=== PATIENT | male | born 1980 | race Caucasian/White ===

== ENCOUNTER 2022-03-10 09:07 | Outpatient (CLI) | payer MEDICARE | END 2022-03-10 09:08 | disposition home or self-care (01) | LOC: NS 09:07 | PROVIDERS: ATTEND Nurse Practitioner | DX: Z71.3 Dietary counseling and surveillance (principal); E66.01 Morbid (severe) obesity due to excess calories; Z71.89 Other specified counseling; Z68.42 Body mass index [BMI] 45.0-49.9, adult | CPT/HCPCS: 97802 ==

== ENCOUNTER 2022-08-24 07:33 | Outpatient (CLI) | payer MEDICARE ==
[2022-08-24 11:33] LABS: BASOPHILS % (AUTO) 0.3 %; EOSINOPHILS # (AUTO) 0.2 10^3/uL (0.0-0.7); HCT - HEMATOCRIT 47.4 % (42.0-52.0); HGB - HEMOGLOBIN 15.1 g/dL (14.0-18.0); LYMPHOCYTES # (AUTO) 3.1 10^3/uL (1.5-3.5); LYMPHOCYTES % (AUTO) 33.4 %; MEAN CORPUSCULAR HEMOGLOBIN 28.8 pg (27.0-31.0); MEAN CORPUSCULAR HGB CONC 31.9 g/dL (32.0-36.0); MEAN CORPUSCULAR VOLUME 90.3 fL (80.0-94.0); MONOCYTES # (AUTO) 0.8 10^3/uL (0.0-1.0); MONOCYTES % (AUTO) 8.4 %; NEUTROPHILS # (AUTO) 5.1 10^3/uL (1.5-6.6); PLT - PLATELET COUNT 273 10^3/uL (130-450); RED BLOOD COUNT 5.25 10^6/uL (4.70-6.10); RED CELL DISTRIBUTION WIDTH 13.2 % (12.0-15.0); WHITE BLOOD COUNT 9.2 x10^3/uL (4.8-10.8)
[2022-08-24 11:40] LABS: BILIRUBIN,URINE NEGATIVE (NEGATIVE); GLUCOSE, URINE (UA) NEGATIVE (NEGATIVE); KETONES,URINE (UA) NEGATIVE (NEGATIVE); LEUKOCYTE ESTERASE, URINE NEGATIVE (NEGATIVE); NITRITE,URINE NEGATIVE (NEGATIVE); OCCULT BLOOD,URINE NEGATIVE (NEGATIVE); PROTEIN,URINE NEGATIVE (NEGATIVE); UROBILINOGEN,URINE 0.2 (NORMAL) E.U./dL (NORMAL)
[2022-08-24 11:46] LABS: BACTERIA,URINE None Seen /HPF (None Seen); CLARITY,URINE CLEAR (CLEAR); RBC,URINE None Seen /HPF (0-5); SQUAMOUS EPITHELIAL CELL,UR NONE SEEN (<= Few); WBC,URINE 0-3 /HPF (0-3)
[2022-08-24 12:14] LABS: ESTIMATED AVERAGE GLUCOSE 111 mg/dL (70-100); HEMOGLOBIN A1c% 5.5 % (4.27-6.07)
[2022-08-24 12:23] LABS: ALBUMIN 3.8 g/dL (3.2-5.5); ALKALINE PHOSPHATASE 74 IU/L (42-121); ALT ALANINE AMINOTRANSFERASE 23 IU/L (10-60); AST ASPARTATE AMINOTRANSFERASE 19 IU/L (10-42); BILIRUBIN,TOTAL 0.4 mg/dL (0.2-1.0); BUN - BLOOD UREA NITROGEN 15 mg/dL (6-20); CALCIUM 8.9 mg/dL (8.5-10.3); CARBON DIOXIDE - CO2 27 mmol/L (21-32); CHLORIDE 108 mmol/L (101-111); CHOL/HDL RATIO 4.1 (<5.0); CHOLESTEROL 199 mg/dL; CREATININE 0.8 mg/dL (0.6-1.2); GFR - MDRD 106 (>89); GLUCOSE 103 mg/dL (70-100); HDL CHOLESTEROL 48 mg/dL; LDL CHOLESTEROL,CALCULATED 127 mg/dL; LDL/HDL RATIO 2.6 (<3.6); POTASSIUM 4.5 mmol/L (3.5-5.0); SODIUM 139 mmol/L (135-145); TOTAL PROTEIN 7.5 g/dL (6.7-8.2); TRIGLYCERIDES 119 mg/dL; VLDL CHOLESTEROL 24 mg/dL
[2022-08-24 12:25] LABS: THYROID STIMULATING HORMONE 2.66 uIU/mL (0.34-5.60)
[2022-08-25 19:07] LABS: T-TRANSGLUTAMINASE (TTG) IGA <2 U/mL (0-3); T-TRANSGLUTAMINASE (TTG) IGG 6 U/mL (0-5)
== END 2022-08-24 07:34 | disposition home or self-care (01) ==
LOC: LAB.N 07:33
PROVIDERS: ATTEND Nurse Practitioner
DX: R53.83 Other fatigue (principal); R03.0 Elevated blood-pressure reading, without diagnosis of hypertension; Z13.220 Encounter for screening for lipoid disorders; E66.01 Morbid (severe) obesity due to excess calories; G62.9 Polyneuropathy, unspecified; Z87.19 Personal history of other diseases of the digestive system
CPT/HCPCS: 36415; 80053; 80061; 81001; 82607; 83036; 83516; 83721; 84443; 85025; 86364; 87086

== ENCOUNTER 2023-08-31 14:34 | Emergency (ER) | payer MEDICARE ==
--- NOTE | 2023-08-31 15:27 | ED Physician Documentation ---
History of Present Illness - Stated complaint Stated Complaint: R FT PX - Chief complaint Chief Complaint: General - History obtained from History obtained from: Patient - History of Present Illness Timing: How many weeks ago (1) Pain level max: 0 Pain level now: 0 - Additonal information Additional information: 43 year old male with a history of neuropathy and charcot foot presents with a blister to the R foot x1 week. States went to the walk in clinic and sent here for further evaluation. Has had several similar foot wounds and usually sees wound care. No fevers. No chills. Nothing makes it better or worse. Patient is not diabetic. Has mild redness to the area around the wound. Review of Systems Constitutional: denies: Fever, Chills, Myalgias Respiratory: denies: Cough GI: denies: Abdominal Pain, Nausea, Vomiting : denies: Dysuria Musculoskeletal: denies: Neck pain, Back pain Neurologic: denies: Headache PD PAST MEDICAL HISTORY - Past Medical History Past Medical History: Yes Psych: Anxiety Other Past Medical History: charcot foot, neuropathy - Past Surgical History Past Surgical History: No - Present Medications Home Medications: Ambulatory Orders Medication Instructions Recorded Confirmed Alprazolam [Xanax] 1 tab PO PRN PRN 08/31/23 08/31/23 Lisinopril [Zestril] 1 tab PO DAILY 08/31/23 08/31/23 Propranolol [Inderal] 1 tab PO DAILY 08/31/23 08/31/23 Sulfamethox/Trimeth 800/160 1 each PO BID #20 tablet 08/31/23 [Bactrim Ds 800/160] cephALEXin [Keflex] 500 mg PO Q6H #40 cap 08/31/23 cloNIDine [Catapres] 1 tab PO DAILY 08/31/23 08/31/23 - Allergies Allergies/Adverse Reactions: Allergies Allergy/AdvReac Type Severity Reaction Status Date / Time No Known Drug Allergies Allergy Verified 08/31/23 14:37 - Living Situation Living Situation: reports: With family Living Arrangement: reports: At home - Social History Does the pt smoke?: No Smoking Status: Never smoker Does the pt drink ETOH?: No Does the pt have substance abuse?: Yes Substance Use and Type: Marijuana - Immunizations Immunizations are current?: Yes PD ED PE NORMAL - Vitals Vital signs reviewed: Yes - General General: Alert and oriented X 3, No acute distress - HEENT HEENT: Moist mucous membranes - Neck Neck: Supple, no meningeal sign - Cardiac Cardiac: RRR, Strong equal pulses - Respiratory Respiratory: No respiratory distress, Clear bilaterally - Derm Derm: Warm and dry - Extremities Extremities: Other (quarter sized ulceration to the R lateral foot at the 5th MTP joint. no drainage. mild surrounding erythema. Patient has no sensation over the foot. normal pulses and cap refill.) - Neuro Neuro: Alert and oriented X 3 - Psych Psych: Normal mood, Normal affect Results - Vitals Vitals: Vital Signs - 24 hr 08/31/23 08/31/23 14:39 15:39 Temperature 36.7 C Heart Rate 77 78 Respiratory 18 16 Rate Blood Pressure 155/90 H 138/84 H O2 Saturation 98 100 Oxygen O2 Source Room air Procedures - General procedure General procedure: Verbal consent obtained for debridement of the right foot. Necrotic tissue was removed with an 11 blade scalpel. Down to vitalized, bleeding tissue. Mepitel was placed over the wound. A dressing was then placed over the wound. No complications. Patient tolerated well. PD Medical Decision Making - ED course Complexity details: considered differential, d/w patient ED course: 43 year old male with superficial ulcer of the right foot with mild cellulitis. The ulcer was debrided with a #11 scalpel and the devitalized tissue was removed down to bleeding tissues. No complications. Patient has neuropathy, but no diabetes. No signs of systemic infection. No fevers. No chills. No myalgias. The infection appears superficial. We will place him on antibiotics. There is no purulent drainage to obtain a culture. Recommend close follow-up with his PCP and close follow-up with wound care. Patient has a history of poor wound healing in the past. No indication for laboratory testing or imaging at this point. Patient counseled regarding signs and symptoms for which I believe and urgent re-evaluation would be necessary. Patient with good understanding of and agreement to plan and is comfortable going home at this time This document was made in part using voice recognition software. While efforts are made to proofread this document, sound alike and grammatical errors may occur. Departure - Departure Disposition: 01 Home, Self Care Clinical Impression: Callus of foot Foot ulcer Qualifiers: Laterality: right Non-pressure ulcer stage: limited to breakdown of skin Qualified Code(s): L97.511 - Non-pressure chronic ulcer of other part of right foot limited to breakdown of skin Charcot's joint of foot Qualifiers: Laterality: right Qualified Code(s): M14.671 - Charcot's joint, right ankle and foot Peripheral neuropathy Qualifiers: Peripheral neuropathy type: polyneuropathy, unspecified Qualified Code(s): G62.9 - Polyneuropathy, unspecified Condition: Good Instructions: Pressure Ulcer Foot Follow-Up: Rossi Griffiths ARNP [Primary Care Provider] - Within 3 Days Prescriptions: Sulfamethox/Trimeth 800/160 [Bactrim Ds 800/160] 1 each PO BID #20 tablet cephALEXin [Keflex] 500 mg PO Q6H #40 cap Comments: The wound on your foot was debrided today. You will need a referral to wound care from your doctor. Please see them next week for this. Take all antibiotics until gone. Return for increasing redness, swelling, fevers, or other new or worrisome symptoms. Your prescription was sent to [facility]. Forms: PCP List Discharge Date/Time: 08/31/23 15:39
[2023-08-31 15:45] VITALS: BP 138/84; O2SAT 100
== END 2023-08-31 15:39 | disposition home or self-care (01) ==
LOC: ED 14:34
DX: L97.511 Non-pressure chronic ulcer of other part of right foot limited to breakdown of skin (principal); G62.9 Polyneuropathy, unspecified; L84 Corns and callosities; M14.671 Charcot's joint, right ankle and foot; Z79.899 Other long term (current) drug therapy
CPT/HCPCS: 14040; 99284

== ENCOUNTER 2023-09-23 11:29 | Inpatient (IN) | payer MEDICARE ==
--- NOTE | 2023-09-23 12:38 | ED Physician Documentation ---
PD HPI WOUND RECHECK - Stated complaint Stated Complaint: RT FOOT SORE - Chief complaint Chief Complaint: Wound - Histroy obtained from History obtained from: Patient - Additional information Additional information: He has a history of idiopathic neuropathy and Charcot joints of his feet. He has had wound infections before. He developed the current wound which is on the lateral right foot about a month ago. He slept in his boots and the next morning had a angry looking blood blister here. He was seen here and it was debrided and he was put on Keflex and Bactrim. Over the last 4 days or so it has become much worse, larger, and he is developed fevers and shaking chills with a sense of generalized illness. PD PAST MEDICAL HISTORY - Past Medical History Past Medical History: Yes Cardiovascular: Hypertension Respiratory: None Neuro: Peripheral neuropathy Endocrine/Autoimmune: None GI: None : None HEENT: None Psych: Anxiety Musculoskeletal: Other Derm: Other - Past Surgical History Past Surgical History: Yes Ortho: Other - Present Medications Home Medications: Ambulatory Orders Medication Instructions Recorded Confirmed Lisinopril [Zestril] 1 tab PO DAILY 08/31/23 09/23/23 Propranolol [Inderal] 1 tab PO DAILY 08/31/23 09/23/23 cloNIDine [Catapres] 1 tab PO DAILY 08/31/23 09/23/23 - Allergies Allergies/Adverse Reactions: Allergies Allergy/AdvReac Type Severity Reaction Status Date / Time No Known Drug Allergies Allergy Verified 09/23/23 11:57 - Social History Does the pt smoke?: No Smoking Status: Former smoker Does the pt drink ETOH?: No Does the pt have substance abuse?: Yes Substance Use and Type: Marijuana - Immunizations Immunizations are current?: Yes PD ED PE NORMAL - Vitals Vital signs reviewed: Yes - General General: Alert and oriented X 3, No acute distress - Cardiac Cardiac: RRR, No murmur - Respiratory Respiratory: No respiratory distress, Clear bilaterally - Abdomen Abdomen: Non tender - Back Back: No CVA TTP, No spinal TTP - Derm Derm: Normal color, Warm and dry - Extremities Extremities: Other (There is a large necrotic ulcer on the lateral part of the right foot proximal to the fifth metatarsal head. Wound culture was taken during initial evaluation and the swab was able to be inserted about 10 cm posteriorly without significant resistance. It is foul-smelling and there is cellulitis in) - Neuro Neuro: Alert and oriented X 3, Normal speech Results - Vitals Vitals: Vital Signs - 24 hr 09/23/23 09/23/23 11:57 14:03 Temperature 36.9 C Heart Rate 81 77 Respiratory 18 20 Rate Blood Pressure 120/65 107/49 L O2 Saturation 98 99 Oxygen O2 Source Room air - Labs Labs: Microbiology 09/23/23 12:30 Wound Culture - Preliminary Foot - Right Laboratory Tests 09/23/23 09/23/23 09/23/23 12:50 12:50 12:50 WBC 14.1 H RBC 4.62 L Hgb 13.1 L Hct 41.4 L MCV 89.6 MCH 28.4 MCHC 31.6 L RDW 12.6 Plt Count 360 MPV 10.6 Neut # (Auto) 9.8 H Lymph # (Auto) 2.7 [place] # (Auto) 1.3 H Eos # (Auto) 0.3 Baso # (Auto) 0.0 Absolute Nucleated RBC 0.00 Nucleated RBC % 0.0 ESR Sodium 136 Potassium 4.0 Chloride 103 Carbon Dioxide 26 Anion Gap 7.0 BUN 10 Creatinine 0.8 Estimated GFR (MDRD) 106 Glucose 102 Lactic Acid 1.1 Calcium 9.5 Total Bilirubin 0.4 AST 13 ALT 25 Alkaline Phosphatase 87 C-Reactive Protein 14.8 H Total Protein 7.0 Albumin 3.6 Globulin 3.4 Albumin/Globulin Ratio 1.1 Procalcitonin Immunoas 09/23/23 09/23/23 12:50 12:50 WBC RBC Hgb Hct MCV MCH MCHC RDW Plt Count MPV Neut # (Auto) Lymph # (Auto) [place] # (Auto) Eos # (Auto) Baso # (Auto) Absolute Nucleated RBC Nucleated RBC % ESR 57 H Sodium Potassium Chloride Carbon Dioxide Anion Gap BUN Creatinine Estimated GFR (MDRD) Glucose Lactic Acid Calcium Total Bilirubin AST ALT Alkaline Phosphatase C-Reactive Protein Total Protein Albumin Globulin Albumin/Globulin Ratio Procalcitonin Immunoas 0.06 - Rads (name of study) R foot XR Relevant Findings:: Final report received, EMP independent interpretation of test PD Medical Decision Making - ED course ED course: 43-year-old gentleman with history of idiopathic neuropathy that has stymied the best efforts of several neurologists and at a minimum he is neither an alcoholic nor diabetic. Because of this he has Charcot feet and now has a foot infection that has failed antibiotics with systemic symptoms of tactile fevers and shaking chills. He has a deep ulcer on the lateral side of the right foot that tracks very deep when I took a culture (approximately 8 to 10 cm deep) with cellulitis and evidence of osteomyelitis of the fifth ray. We do not have orthopedics on-call today but I did texted Dr Helm who is gracious enough to offer guidance and either he or Dr. Hernandez will consult tomorrow for evaluation for potential ray amputation. He was placed on Zosyn and vancomycin and spoke with Dr. Marks for admission at 1:25 PM. - Sepsis Event Sepsis Onset Date: 09/23/23 Sepsis Onset Time: 16:00 Current Stage of Sepsis: Sepsis (He is technically mildly septic with a white count and tachypnea up to 22. He met sepsis criteria at 4 PM with acute tachypnea.) Initial Hypotension: Not hypotensive Possible source of Sepsis: Bone/Joint Mental/Cognitive Status: Alert/Oriented X3, Normal for patient Reason for not giving 30ml/kg crystalloid fluids: Not in septic shock Capillary refill: Less than 2 seconds Peripheral Pulse Strength: 3+ Normal Peripheral Pulse Location: Radial Departure - Departure Disposition: [facility] DC/Xfer Clinical Impression: Peripheral neuropathy Qualifiers: Peripheral neuropathy type: polyneuropathy, unspecified Qualified Code(s): G62.9 - Polyneuropathy, unspecified Osteomyelitis Qualifiers: Osteomyelitis type: other acute Osteomyelitis location: foot Laterality: right Qualified Code(s): M86.171 - Other acute osteomyelitis, right ankle and foot Cellulitis Qualifiers: Site of cellulitis: extremity Site of cellulitis of extremity: lower extremity Laterality: right Qualified Code(s): L03.115 - Cellulitis of right lower limb Foot ulcer Qualifiers: Laterality: right Non-pressure ulcer stage: with necrosis of bone Qualified Code(s): L97.514 - Non-pressure chronic ulcer of other part of right foot with necrosis of bone Condition: Stable
[2023-09-23 12:56] LABS: BASOPHILS % (AUTO) 0.3 %; EOSINOPHILS # (AUTO) 0.3 10^3/uL (0.0-0.7); EOSINOPHILS % (AUTO) 1.8 %; HCT - HEMATOCRIT 41.4 % (42.0-52.0); HGB - HEMOGLOBIN 13.1 g/dL (14.0-18.0); LYMPHOCYTES # (AUTO) 2.7 10^3/uL (1.5-3.5); LYMPHOCYTES % (AUTO) 19.2 %; MEAN CORPUSCULAR HEMOGLOBIN 28.4 pg (27.0-31.0); MEAN CORPUSCULAR HGB CONC 31.6 g/dL (32.0-36.0); MEAN CORPUSCULAR VOLUME 89.6 fL (80.0-94.0); MEAN PLATELET VOLUME 10.6 fL (7.4-11.4); MONOCYTES # (AUTO) 1.3 10^3/uL (0.0-1.0); MONOCYTES % (AUTO) 9.1 %; NEUTROPHILS # (AUTO) 9.8 10^3/uL (1.5-6.6); PLT - PLATELET COUNT 360 10^3/uL (130-450); RED BLOOD COUNT 4.62 10^6/uL (4.70-6.10); RED CELL DISTRIBUTION WIDTH 12.6 % (12.0-15.0); WHITE BLOOD COUNT 14.1 x10^3/uL (4.8-10.8)
--- NOTE | 2023-09-23 13:04 | XRAY Report ---
PROCEDURE: Foot 3+V RT INDICATIONS: Right foot infection TECHNIQUE: 3 views of the foot were acquired. COMPARISON: None. FINDINGS: Bones: Bony lysis can be seen involving the fifth metatarsal joint. No melo fractures are seen. Charcot arthropathy can be seen, with generalized joint space narrowing with disorganization involving the midfoot. There is a moderate plantar calcaneal spur. Soft tissues: There is a soft tissue wound is seen involving the area overlying the fifth metatarsal phalangeal joint. Soft tissue gas is seen. Joint soft tissue swelling can be seen. Postoperative clips can be seen involving the soft tissues of the hindfoot laterally. IMPRESSION: Soft tissue wound with strong suspicion underlying osteomyelitis involving the fifth metatarsophalang eal joint. If there is strong clinical concern for developing osteomyelitis in this patient with this given hist ory, then please consider a dedicated MRI (without and with contrast) for further evaluation (assumin g that there is no contraindication). Generalized soft tissue swelling is seen. Charcot arthropathy. Prior soft tissue postoperative change seen involving the hindfoot laterally. Reviewed by: Jah Abreu MD on 09/23/2023 12:03 PM MELISA Approved by: Jah Abreu MD on 09/23/2023 12:03 PM MELISA Station ID: [id number]
[2023-09-23 13:11] LABS: ALBUMIN 3.6 g/dL (3.2-5.5); ALBUMIN/GLOBULIN RATIO 1.1 (1.0-2.2); BILIRUBIN,TOTAL 0.4 mg/dL (0.2-1.0); CALCIUM 9.5 mg/dL (8.5-10.3); CREATININE 0.8 mg/dL (0.6-1.3); CRP - C-REACTIVE PROTEIN 14.8 mg/dL (<0.5)
[2023-09-23] MEDS: PIPERACILLIN/TAZOBACTAM 3.375 GM in SODIUM CHLORIDE 0.9% MINIBAG 100 ML IV STA (13:31)
[2023-09-23] MEDS: VANCOMYCIN INJ 2 GM, VANCOMYCIN INJ 500 MG in SODIUM CHLORIDE 0.9% 500 ML IV ONE (13:48)
[2023-09-23] MEDS ORDERED: SODIUM CHLORIDE FLUSH 0.9% 10 ML SYRINGE IVP PRN (14:31)
--- NOTE | 2023-09-23 15:04 | HISTORY & PHYSICAL EXAMINATION ---
Chief Complaint - Chief Complaint Chief Complaint: Foot Pain History of Present Illness - Admitted From Admitted From:: Emergency Room - History Obtained From Records Reviewed: Yes History obtained from: Patient and Emergency Room Physician, Dr. Brain Quinonez - History of Present Illness HPI Comment/Other: Tien Osborne is a 43-year-old man with a past medical history significant for idiopathic neuropathy and Charcot joints of the feet. He reports approximately 6 weeks ago he slept in his boots and this is resulted in a right foot ulcer. He was evaluated at the [facility] emergency room and was being followed in the emergency room for the wound. The wound continue to become progressively worse and he was placed on Keflex and Bactrim. Over the last 4 to 5 days he is complaining of shaking chills and fever. He has no other complaints at this time.In the emergency room, patient received Zosyn and vancomycin. History - Past Medical History Cardiovascular: reports: Hypertension Respiratory: reports: None Neuro: reports: Peripheral neuropathy Endocrine/Autoimmune: reports: None GI: reports: None : reports: None HEENT: reports: None Psych: reports: Anxiety Musculoskeletal: reports: Other Derm: reports: Other MRSA Hx?: No - Past Surgical History Ortho: reports: Other - Family & Social History Living Situation: With family Meds/Allgy - Home Medications Home Medications: Ambulatory Orders Medication Instructions Recorded Confirmed Lisinopril [Zestril] 1 tab PO DAILY 08/31/23 09/23/23 Propranolol [Inderal] 1 tab PO DAILY 08/31/23 09/23/23 cloNIDine [Catapres] 1 tab PO DAILY 08/31/23 09/23/23 - Allergies Allergies/Adverse Reactions: Allergies Allergy/AdvReac Type Severity Reaction Status Date / Time No Known Drug Allergies Allergy Verified 09/23/23 11:57 Review of Systems - Constitutional Constitutional: reports: Fever, Chills, Weakness Exam - Vital Signs Reviewed Vital Signs: Yes Vital Signs: Vital Signs x48h Temp Pulse Resp BP Pulse Ox 09/23/23 14:03 77 20 107/49 L 99 09/23/23 11:57 36.9 C 81 18 120/65 98 - Physical Exam General Appearance: positive: No acute distress, Alert Eyes Bilateral: positive: Conjunctivae nml Neck: positive: No JVD, Trachea midline Respiratory: positive: Other (Good air exchange in all lung corley no wheezing no crackles.) Cardiovascular: positive: Other (Positive S1-S2 no extra heart sounds.) Abdomen: positive: Other (Soft nontender nondistended positive bowel sounds.) Skin: positive: No rash Extremities: positive: Other (Charcoaled feet bilaterally. There is a large ulcer on the lateral aspect of the right foot.) Neurologic/Psychiatric: positive: Oriented x3, Motor nml Conclusion/Plan - Problem List (1) Osteomyelitis Conclusion/Plan: Continue treatment with Zosyn and vancomycin. No one is on-call for orthopedics today. Consult orthopedics tomorrow SCDs for DVT prophylaxis. N.p.o. after midnight. Qualifiers: Osteomyelitis type: other acute Osteomyelitis location: foot Laterality: right Qualified Code(s): M86.171 - Other acute osteomyelitis, right ankle and foot (2) Cellulitis Conclusion/Plan: See above Qualifiers: Site of cellulitis: extremity Site of cellulitis of extremity: lower extremity Laterality: right Qualified Code(s): L03.115 - Cellulitis of right lower limb (3) Foot ulcer Conclusion/Plan: See above Qualifiers: Laterality: right Non-pressure ulcer stage: with necrosis of bone Qualified Code(s): L97.514 - Non-pressure chronic ulcer of other part of right foot with necrosis of bone - Lab Results Fish Bones: 09/23/23 12:50 09/23/23 12:50
[2023-09-23] MEDS: SODIUM CHLORIDE FLUSH 0.9% 10 ML SYRINGE IVP SCH (16:52)
[2023-09-23] MEDS: HYDROcod/ACETAM 5/325 MG TABLET PO PRN (17:30)
[2023-09-23] MEDS: ACETAMINOPHEN 325 MG TABLET PO PRN (17:30)
[2023-09-24] MEDS: D5.45NS W/20 MEQ KCL 1,000 ML IV SCH (00:15)
[2023-09-24] MEDS: PIPERACILLIN/TAZOBACTAM 3.375 GM in SODIUM CHLORIDE 0.9% MINIBAG 100 ML IV SCH (00:20)
[2023-09-24] MEDS: VANCOMYCIN INJ 1 GM in SODIUM CHLORIDE 0.9% 250 ML IV SCH (02:24)
[2023-09-24 06:58] LABS: CALCIUM 9.5 mg/dL (8.5-10.3); CREATININE 0.8 mg/dL (0.6-1.3); MAGNESIUM 2.1 mg/dL (1.7-2.3); PHOSPHORUS 3.6 mg/dL (2.5-5.0); POTASSIUM 4.6 mmol/L (3.5-4.5)
--- NOTE | 2023-09-24 14:11 | PHARMACY PROGRESS NOTE ---
- Best Possible Medication History Admit Date and Time: 09/23/23 1431 Processed by: Pharmacy Medications reviewed in ED?: Yes Medication History completed: Yes Patient Interview: Completed (by sheet metal technicianRoni) Secondary Source(s): Insurance records As the person ultimately responsible for medication therapy, providers are able to order a medication from an existing home medication list in [facility] via the "Reconcile Routine" prior to Confirmation of that medication by web support engineer. Such practice is discouraged except when the physician, in their clinical judgment, deems that a medical need exists for a medication without regard to previous use.
[2023-09-24] MEDS ORDERED: GADOTERATE MEGLUMINE 10 MMOL/20 ML VIAL ONE (17:18)
[2023-09-24] MEDS ORDERED: GADOTERATE MEGLUMINE 7.5 MMOL/15 ML VIAL ONE (17:18)
--- NOTE | 2023-09-24 18:51 | CONSULTATION NOTE ---
Referring Provider Consult Date: 09/24/23 Chief Complaint - Chief Complaint Chief Complaint: Right Foot Ulcer History of Present Illness - Admitted From Admitted From:: Emergency Room - History of Present Illness HPI Comment/Other: 43 yo M With history of Charcot neuropathy has been admitted to the medicine service for a right lateral foot ulcer. Patient reports that approximately 3 weeks ago he started to develop a right foot blister while wearing boots. He initially presented to an urgent care who referred him to the emergency department. On presentation to the emergency department it was determined that he could manage this as an outpatient and was prescribed Keflex and Bactrim. Initially on these medications he had no symptoms and the ulcer was in proving. However after stopping the medications he started to have chills. He then represented to the emergency department who found him to have a significant right foot lateral ulcer. He was given Zosyn and vancomycin. He was then admitted to the medicine service. Patient reports having no pain at the ulcer site. His Charcot neuropathy involves bilateral lower legs at about the mid calf level. He has had a history of prior ulcers however they have never been this significant. He currently is not seeing a primary care provider or anyone with regards to his feet. Denies feeling systemically ill. He has not had any fevers or chills recently. Denies nausea. History - Past Medical History Cardiovascular: reports: Hypertension Respiratory: reports: None Neuro: reports: Peripheral neuropathy Endocrine/Autoimmune: reports: None GI: reports: None : reports: None HEENT: reports: None Psych: reports: Anxiety Musculoskeletal: reports: Other Derm: reports: Other MRSA Hx?: No Other Past Medical History: Charcot disease on both feet per pt - Past Surgical History Ortho: reports: Other - Family & Social History Living Situation: With family Meds/Allgy - Home Medications Home Medications: Ambulatory Orders Medication Instructions Recorded Confirmed Lisinopril [Zestril] 10 mg PO DAILY 08/31/23 09/24/23 Propranolol [Inderal] 40 mg PO DAILY PRN 08/31/23 09/24/23 cloNIDine [Catapres] 0.1 mg PO DAILY 08/31/23 09/24/23 ALPRAZolam [Alprazolam] 0.5 mg PO PRN PRN 09/24/23 09/24/23 Propranolol HCl [Inderal LA] 160 mg PO DAILY 09/24/23 09/24/23 - Allergies Allergies/Adverse Reactions: Allergies Allergy/AdvReac Type Severity Reaction Status Date / Time No Known Drug Allergies Allergy Verified 09/23/23 11:57 Review of Systems - Constitutional Constitutional: reports: Fatigue ( patient reported that previously he had chills. Currently he has no systemic symptoms.) Exam - Vital Signs Reviewed Vital Signs: Yes Vital Signs: Vital Signs x48h Temp Pulse Resp BP Pulse Ox 09/24/23 15:37 36.6 C 71 16 126/76 95 - Physical Exam General Appearance: positive: No acute distress Peripheral Pulses: positive: 2+ Extremities: positive: Non-tender, Full ROM, Nml appearance Comments/Other: RIGHT Foot: 2 cm open ulcer on the lateral aspect of the fifth MTP joint. Surrounding cellulitis that includes the lateral half of the forefoot. Possible fluid collection about the base of the fifth metatarsal. It is unclear if this is his usual swelling versus a new fluid collection. Malodorous once the dressings were removed. Bilateral feet are completely insensate. His sensation returns at approximately mid calf. Fires EHL tib ant gastroc and peroneals. Bounding pulses - DP and PT Conclusion/Plan - Problem List (1) Foot ulcer Conclusion/Plan: 43yo M with a history of Charcot neuropathy presents to the emergency department and was admitted for right foot ulcer And right foot cellulitis. He has been started on antibiotics. There is a concern that he may have osteomyelitis or a drainable abscess. We would like to further evaluate his condition with an MRI with and without contrast of the right foot. If the patient has a drainable abscess then he will be taken to the operating room for incision and drainage. His radiographs do not show any evidence of osteomyelitis so hopefully he is being treated early. He has good healing potential given his strong pulses and elevated absolute lymphocyte count and serum albumin. If there are no true surgical indications the wound may be debrided at bedside. - Nonweightbearing right lower extremity - IV antibiotics - MRI of the right foot with and without - contrast looking for abscess or osteomyelitis - n.p.o. at midnight for possible incision and drainage on September 25, 2023 - follow blood cultures - repeat CBC, CRP and ESR every 2 days - orthopedics will reevaluate in the morning and determine if he will require a bedside debridement vs I&D in the OR Carter Hernandez MD Ortho [phone] Qualifiers: Laterality: right - Lab Results Fish Bones: 09/23/23 12:50 09/24/23 05:51
[2023-09-24] MEDS: GADOTERATE MEGLUMINE 10 MMOL/20 ML VIAL IVP ONE (18:55)
[2023-09-24] MEDS: GADOTERATE MEGLUMINE 7.5 MMOL/15 ML VIAL IVP ONE (18:56)
--- NOTE | 2023-09-24 19:27 | MRI Report ---
PROCEDURE: Foot RT W/WO INDICATIONS: lateral foot ulcer concern for abscess along the 5 CONTRAST: 35ml Clariscan TECHNIQUE: Noncontrast sagittal T1 spin echo and T2 fast spin echo with fat saturation, long-axis T1 spin echo a nd T2 fast spin echo with fat saturation; short-axis T1 spin echo, proton density fast spin echo, and T2 fast spin echo with fat saturation through the forefoot. Post-contrast short axis, long axis, an d sagittal T1 spin echo with fat saturation through the forefoot. COMPARISON: Foot radiographs earlier today. FINDINGS: Image quality: Poor. Charcot arthropathy demonstrable by bony destruction in the midfoot. Heterogeneous signal at the fift h metatarsal head. Adjacent soft tissue T1 hypointense and T2 hyperintense signal with skin wound. Th is also likely involves the fifth MTP joint. There is heterogeneous enhancement. IMPRESSION: Image quality is poor degraded by artifact. Skin ulcer adjacent to the fifth MTP joint. There is heterogeneous enhancement and edema signal which extends to the fifth MTP joint space and fifth metatarsal head. Findings in keeping with osteomyelit is. Charcot arthropathy at the midfoot. Reviewed by: Sam Bales MD on 09/24/2023 7:25 PM PDT Approved by: Sam Bales MD on 09/24/2023 7:25 PM PDT Station ID: [id number]
--- NOTE | 2023-09-24 22:09 | PROVIDER PROGRESS NOTE ---
Assessment/Plan - Problem List (1) Osteomyelitis Qualifiers: Osteomyelitis type: other acute Osteomyelitis location: foot Laterality: right Qualified Code(s): M86.171 - Other acute osteomyelitis, right ankle and foot Assessment/Plan: Continue treatment with Zosyn and vancomycin.Appreciate orthopedics assistance. He is n.p.o. after midnight for possible procedure tomorrow. (2) Cellulitis Qualifiers: Site of cellulitis: extremity Site of cellulitis of extremity: lower extremity Laterality: right Qualified Code(s): L03.115 - Cellulitis of right lower limb Assessment/Plan: See above (3) Foot ulcer Qualifiers: Laterality: right Assessment/Plan: See above - Current Meds Current Meds: Current Medications Generic Name Dose Route Start Last Admin Trade Name Freq PRN Reason Stop Dose Admin Acetaminophen 650 mg 09/23/23 17:09 09/23/23 17:30 Acetaminophen 325 Mg Tablet PO 650 mg Q4HR PRN Administration Pain or Fever > 38C (100.4F) Hydrocodone Bitart/Acetaminophen 1 tab 09/23/23 17:08 09/23/23 17:30 Hydrocod/Acetam 5/325 Mg Tablet PO 1 tab Q4HR PRN Administration Moderate Pain (Level 4-6) Piperacillin Sod/Tazobactam 100 mls @ 25 mls/hr 09/24/23 00:00 09/24/23 21:13 Sod 3.375 gm/ Sodium Chloride IV Infused Q8H [facility]A Infusion Vancomycin HCl 1 gm/ Sodium 250 mls @ 167 mls/hr 09/24/23 01:00 09/24/23 14:20 Chloride IV Infused Q12H LA[facility]A Infusion Sodium Chloride 10 ml 09/23/23 17:00 09/24/23 15:48 Sodium Chloride Flush 0.9% 10 Ml Syringe IVP 10 ml 0100,0900,1700 LAURA Administration - Lab Result Fish Bone Diagrams: 09/23/23 12:50 09/24/23 05:51 - Additional Planning My Orders: My Active Orders 09/23/23 23:23 SCDs [RC] QSHIFT 09/24/23 00:00 Piperacillin/Tazobactam [Zosyn] 3.375 gm Sodium Chloride 0.9% Minibag [Normal Saline 0.9% Minibag] 100 ml IV Q8H 09/24/23 01:00 Vancomycin Inj [Vancomycin] 1 gm Sodium Chloride 0.9% [Normal Saline 0.9%] 250 ml IV Q12H 09/24/23 Lunch Regular Diet [DIET] 09/25/23 12:30 VANCOMYCIN TROUGH [CHEM] Timed Subjective - Subjective Patient Reports: Other (Alert. No new complaints at this time. Denies chest pain, shortness of breath and abdominal pain.) Objective Vital Signs: Vital Signs - 24 hr 09/24/23 09/24/23 09/24/23 00:17 08:00 15:37 Temperature 37.0 C 36.8 C 36.6 C Heart Rate [ 67 71 Brachial] Heart Rate [ 78 Monitoring electrodes] Respiratory 18 16 16 Rate Blood Pressure 113/68 113/72 [Left Brachial artery] Blood Pressure 126/76 [Right Brachial artery] O2 Saturation 96 96 95 Oxygen O2 Source Room air I&O (Last 24 Hrs): Intake and Output Totals x24h 09/22/23 09/23/23 09/24/23 23:59 23:59 23:59 Intake Total 1870 2653 Balance 1870 2653 General: Oriented x3, No acute distress Neck: No JVD Neuro: Alert, Non Focal Cardiovascular: Other (Positive S1-S2 no extra heart sounds.) Respiratory: Other (Good air exchange in all lung corley no wheezing no crackles.) Abdomen: Other (Soft nontender nondistended positive bowel sounds) Extremities: No cyanosis, Other - Results Results: Laboratory Results WBC 14.1 x10^3/uL (4.8-10.8) H 09/23/23 12:50 RBC 4.62 10^6/uL (4.70-6.10) L 09/23/23 12:50 Hgb 13.1 g/dL (14.0-18.0) L 09/23/23 12:50 Hct 41.4 % (42.0-52.0) L 09/23/23 12:50 MCV 89.6 fL (80.0-94.0) 09/23/23 12:50 MCH 28.4 pg (27.0-31.0) 09/23/23 12:50 MCHC 31.6 g/dL (32.0-36.0) L 09/23/23 12:50 RDW 12.6 % (12.0-15.0) 09/23/23 12:50 Plt Count 360 10^3/uL (130-450) 09/23/23 12:50 MPV 10.6 fL (7.4-11.4) 09/23/23 12:50 Neut # (Auto) 9.8 10^3/uL (1.5-6.6) H 09/23/23 12:50 Lymph # (Auto) 2.7 10^3/uL (1.5-3.5) 09/23/23 12:50 [place] # (Auto) 1.3 10^3/uL (0.0-1.0) H 09/23/23 12:50 Eos # (Auto) 0.3 10^3/uL (0.0-0.7) 09/23/23 12:50 Baso # (Auto) 0.0 10^3/uL (0.0-0.1) 09/23/23 12:50 Absolute Nucleated RBC 0.00 x10^3/uL 09/23/23 12:50 Nucleated RBC % 0.0 /100WBC 09/23/23 12:50 ESR 57 mm/Hr (0-15) H 09/23/23 12:50 Sodium 138 mmol/L (135-145) 09/24/23 05:51 Potassium 4.6 mmol/L (3.5-4.5) H 09/24/23 05:51 Chloride 105 mmol/L (101-111) 09/24/23 05:51 Carbon Dioxide 24 mmol/L (21-32) 09/24/23 05:51 Anion Gap 9.0 (6-13) 09/24/23 05:51 BUN 11 mg/dL (6-20) 09/24/23 05:51 Creatinine 0.8 mg/dL (0.6-1.3) 09/24/23 05:51 Estimated GFR (MDRD) 106 (>89) 09/24/23 05:51 Glucose 115 mg/dL (74-104) H 09/24/23 05:51 Lactic Acid 1.1 mmol/L (0.5-2.2) 09/23/23 12:50 Calcium 9.5 mg/dL (8.5-10.3) 09/24/23 05:51 Phosphorus 3.6 mg/dL (2.5-5.0) 09/24/23 05:51 Magnesium 2.1 mg/dL (1.7-2.3) 09/24/23 05:51 Total Bilirubin 0.4 mg/dL (0.2-1.0) 09/23/23 12:50 AST 13 IU/L (10-42) 09/23/23 12:50 ALT 25 IU/L (10-60) 09/23/23 12:50 Alkaline Phosphatase 87 IU/L (42-121) 09/23/23 12:50 C-Reactive Protein 14.8 mg/dL (<0.5) H 09/23/23 12:50 Total Protein 7.0 g/dL (6.4-8.9) 09/23/23 12:50 Albumin 3.6 g/dL (3.2-5.5) 09/23/23 12:50 Globulin 3.4 g/dL (2.1-4.2) 09/23/23 12:50 Albumin/Globulin Ratio 1.1 (1.0-2.2) 09/23/23 12:50 Procalcitonin Immunoas 0.06 ng/mL (<0.5) 09/23/23 12:50 Sepsis Event Note (H) - Evaluation Possible source of Sepsis: positive: Bone/Joint
[2023-09-25 06:02] LABS: BASOPHILS % (AUTO) 0.4 %; EOSINOPHILS # (AUTO) 0.1 10^3/uL (0.0-0.7); EOSINOPHILS % (AUTO) 1.7 %; HCT - HEMATOCRIT 39.6 % (42.0-52.0); HGB - HEMOGLOBIN 12.3 g/dL (14.0-18.0); LYMPHOCYTES # (AUTO) 1.8 10^3/uL (1.5-3.5); LYMPHOCYTES % (AUTO) 22.2 %; MEAN CORPUSCULAR HGB CONC 31.1 g/dL (32.0-36.0); MEAN CORPUSCULAR VOLUME 90.2 fL (80.0-94.0); MEAN PLATELET VOLUME 10.6 fL (7.4-11.4); MONOCYTES # (AUTO) 0.5 10^3/uL (0.0-1.0); MONOCYTES % (AUTO) 6.3 %; NEUTROPHILS # (AUTO) 5.7 10^3/uL (1.5-6.6); NEUTROPHILS % (AUTO) 68.4 %; PLT - PLATELET COUNT 329 10^3/uL (130-450); RED BLOOD COUNT 4.39 10^6/uL (4.70-6.10); RED CELL DISTRIBUTION WIDTH 12.5 % (12.0-15.0); WHITE BLOOD COUNT 8.3 x10^3/uL (4.8-10.8)
[2023-09-25 13:03] LABS: VANCOMYCIN,TROUGH 6.1 ug/mL
--- NOTE | 2023-09-25 13:56 | PHARMACY PROGRESS NOTE ---
- Therapy Status Therapy status: Trough subtherapeutic Basis for treatment: Empirical Treatment indication: OSTEOMYELITIS/CELLULITIS Trough goal: AUC/ADARSH 400-600 Concurrent antibiotics: ZOSYN - FRANCIS Risk Risk level for Acute Kidney Injury: Moderate Acute Kidney Injury risk factors: Piperacillin/Tozobactam, Wt >100kg or BMI >40 - Monitoring and Recommendation Clinical response to treatment: I&O Previous 24 hours 09/23/23 09/24/23 09/25/23 23:59 23:59 23:59 Intake Total 100 Balance 100 Lab Results 09/23/23 09/23/23 12:50 12:50 ESR 57 H BUN 10 Creatinine 0.8 Estimated GFR (MDRD) 106 Cultures 09/23/23 12:50 Blood - Left Arm Blood Culture - Preliminary NO GROWTH AFTER 2 DAYS 09/23/23 12:40 Blood Blood Culture - Preliminary NO GROWTH AFTER 2 DAYS 09/23/23 12:30 Foot - Right Wound Culture - Final Beta Hemolytic Strep Group B Monitoring plan: Daily serum creatinine Areas for additional monitoring: Therapy de-escalation based on culture results Pharmacy recommendation: Increase dose (Increase dose to 2000 mg IV q12h for estimated AUC of 476 mcg*hr/mL.)
[2023-09-25] MEDS: VANCOMYCIN INJ 2 GM in SODIUM CHLORIDE 0.9% 500 ML IV SCH (18:54)
--- NOTE | 2023-09-25 22:15 | PROVIDER PROGRESS NOTE ---
Assessment/Plan - Problem List (1) Osteomyelitis Qualifiers: Osteomyelitis type: other acute Osteomyelitis location: foot Laterality: right Qualified Code(s): M86.171 - Other acute osteomyelitis, right ankle and foot Assessment/Plan: Continue treatment with Zosyn and vancomycin.Appreciate orthopedics assistance. He is n.p.o. after midnight for possible procedure tomorrow. (2) Cellulitis Qualifiers: Site of cellulitis: extremity Site of cellulitis of extremity: lower extremity Laterality: right Qualified Code(s): L03.115 - Cellulitis of right lower limb Assessment/Plan: See above (3) Foot ulcer Qualifiers: Laterality: right Assessment/Plan: See above - Current Meds Current Meds: Current Medications Generic Name Dose Route Start Last Admin Trade Name Freq PRN Reason Stop Dose Admin Acetaminophen 650 mg 09/23/23 17:09 09/23/23 17:30 Acetaminophen 325 Mg Tablet PO 650 mg Q4HR PRN Administration Pain or Fever > 38C (100.4F) Hydrocodone Bitart/Acetaminophen 1 tab 09/23/23 17:08 09/23/23 17:30 Hydrocod/Acetam 5/325 Mg Tablet PO 1 tab Q4HR PRN Administration Moderate Pain (Level 4-6) Piperacillin Sod/Tazobactam 100 mls @ 25 mls/hr 09/24/23 00:00 09/25/23 20:38 Sod 3.375 gm/ Sodium Chloride IV Infused Q8H [facility] Infusion Vancomycin HCl 2 gm/ Sodium 500 mls @ 250 mls/hr 09/25/23 18:00 09/25/23 20:59 Chloride IV Infused Q12H [facility]A Infusion Sodium Chloride 10 ml 09/23/23 17:00 09/25/23 15:49 Sodium Chloride Flush 0.9% 10 Ml Syringe IVP 10 ml 0100,0900,1700 LA[facility]A Administration - Lab Result Fish Bone Diagrams: 09/25/23 05:45 09/24/23 05:51 - Additional Planning My Orders: My Active Orders 09/25/23 00:01 NPO except Meds at Midnight [DIET] 09/25/23 18:00 Vancomycin Inj [Vancomycin] 2 gm Sodium Chloride 0.9% [Normal Saline 0.9%] 500 ml IV Q12H Subjective - Subjective Patient Reports: Other (Alert. Pain is well-controlled he denies chest pain shortness of breath and abdominal pain. No other complaints at this time.) Objective Vital Signs: Vital Signs - 24 hr 09/25/23 09/25/23 09/25/23 00:00 08:37 16:00 Temperature 36.7 C 36.6 C 37.0 C Heart Rate [ 75 71 74 Brachial] Respiratory 18 18 20 Rate Blood Pressure 103/64 [Left Brachial artery] Blood Pressure 126/70 131/75 H [Right Brachial artery] O2 Saturation 95 95 97 Oxygen O2 Source Room air I&O (Last 24 Hrs): Intake and Output Totals x24h 09/23/23 09/24/23 09/25/23 23:59 23:59 23:59 Intake Total 1870 3353 1300 Balance 1870 3353 1300 General: Alert, Oriented x3, No acute distress HEENT: Atraumatic Neck: No JVD Neuro: Alert, Non Focal Cardiovascular: Other (Positive S1-S2 no extra heart sounds.) Respiratory: Other (Good air exchange in all lung corley no wheezing no crackles.) Abdomen: Other (Soft nontender positive bowel sounds) Extremities: No cyanosis, No edema Skin: No rashes - Results Results: Laboratory Results WBC 8.3 x10^3/uL (4.8-10.8) 09/25/23 05:45 RBC 4.39 10^6/uL (4.70-6.10) L 09/25/23 05:45 Hgb 12.3 g/dL (14.0-18.0) L 09/25/23 05:45 Hct 39.6 % (42.0-52.0) L 09/25/23 05:45 MCV 90.2 fL (80.0-94.0) 09/25/23 05:45 MCH 28.0 pg (27.0-31.0) 09/25/23 05:45 MCHC 31.1 g/dL (32.0-36.0) L 09/25/23 05:45 RDW 12.5 % (12.0-15.0) 09/25/23 05:45 Plt Count 329 10^3/uL (130-450) 09/25/23 05:45 MPV 10.6 fL (7.4-11.4) 09/25/23 05:45 Neut # (Auto) 5.7 10^3/uL (1.5-6.6) 09/25/23 05:45 Lymph # (Auto) 1.8 10^3/uL (1.5-3.5) 09/25/23 05:45 [place] # (Auto) 0.5 10^3/uL (0.0-1.0) 09/25/23 05:45 Eos # (Auto) 0.1 10^3/uL (0.0-0.7) 09/25/23 05:45 Baso # (Auto) 0.0 10^3/uL (0.0-0.1) 09/25/23 05:45 Absolute Nucleated RBC 0.00 x10^3/uL 09/25/23 05:45 Nucleated RBC % 0.0 /100WBC 09/25/23 05:45 ESR 99 mm/Hr (0-15) H 09/25/23 05:45 Sodium 138 mmol/L (135-145) 09/24/23 05:51 Potassium 4.6 mmol/L (3.5-4.5) H 09/24/23 05:51 Chloride 105 mmol/L (101-111) 09/24/23 05:51 Carbon Dioxide 24 mmol/L (21-32) 09/24/23 05:51 Anion Gap 9.0 (6-13) 09/24/23 05:51 BUN 11 mg/dL (6-20) 09/24/23 05:51 Creatinine 0.8 mg/dL (0.6-1.3) 09/24/23 05:51 Estimated GFR (MDRD) 106 (>89) 09/24/23 05:51 Glucose 115 mg/dL (74-104) H 09/24/23 05:51 Lactic Acid 1.1 mmol/L (0.5-2.2) 09/23/23 12:50 Calcium 9.5 mg/dL (8.5-10.3) 09/24/23 05:51 Phosphorus 3.6 mg/dL (2.5-5.0) 09/24/23 05:51 Magnesium 2.1 mg/dL (1.7-2.3) 09/24/23 05:51 Total Bilirubin 0.4 mg/dL (0.2-1.0) 09/23/23 12:50 AST 13 IU/L (10-42) 09/23/23 12:50 ALT 25 IU/L (10-60) 09/23/23 12:50 Alkaline Phosphatase 87 IU/L (42-121) 09/23/23 12:50 C-Reactive Protein 14.3 mg/dL (<0.5) H 09/25/23 05:45 Total Protein 7.0 g/dL (6.4-8.9) 09/23/23 12:50 Albumin 3.6 g/dL (3.2-5.5) 09/23/23 12:50 Globulin 3.4 g/dL (2.1-4.2) 09/23/23 12:50 Albumin/Globulin Ratio 1.1 (1.0-2.2) 09/23/23 12:50 Procalcitonin Immunoas 0.06 ng/mL (<0.5) 09/23/23 12:50 Last Dose Date 09/25/2023 09/25/23 12:37 Last Dose Time 00:58 09/25/23 12:37 Vancomycin Trough 6.1 ug/mL 09/25/23 12:37 Sepsis Event Note (H) - Evaluation Possible source of Sepsis: positive: Bone/Joint
--- NOTE | 2023-09-26 07:24 | PROVIDER PROGRESS NOTE ---
Subjective - General Admit Date: 09/23/23 - Review of Systems HEENT: positive: Visual changes (43yo M admitted for right foot ulcer in the setting of charcot neuropathy. Reports that he is feeling well. Has been compliant with his non-weight bearing status. Denies systemic symptoms.) - Other Other Information/Narrative: 43yo M was admitted to the hospital for a right foot ulcer in the setting of charcot neuropathy. Pt reports no pain however he is insensate. Denies systemic symptoms. Objective - Patient Data Vital Signs: Vital Signs x48h Temp Pulse Resp BP Pulse Ox 09/26/23 00:00 36.5 C 71 18 114/55 L 96 Weight: Weight 09/24/23 09/25/23 09/26/23 23:59 23:59 23:59 Weight (kg) 174.497 kg Intake & Output: Intake and Output Totals x24h 09/24/23 09/25/23 09/26/23 23:59 23:59 23:59 Intake Total 3353 1300 100 Balance 3353 1300 100 - Lab Results Lab Results: 09/25/23 05:45 09/24/23 05:51 Other Lab Results: Lab Results x24hrs 09/25/23 Range/Units 12:37 Last Dose Date 09/25/2023 Last Dose Time 00:58 Vancomycin Trough 6.1 ug/mL - Current Medications Current Medications: Current Medications Generic Name Dose Route Start Last Admin Trade Name Freq PRN Reason Stop Dose Admin Acetaminophen 650 mg 09/23/23 17:09 09/23/23 17:30 Acetaminophen 325 Mg Tablet PO 650 mg Q4HR PRN Administration Pain or Fever > 38C (100.4F) Hydrocodone Bitart/Acetaminophen 1 tab 09/23/23 17:08 09/23/23 17:30 Hydrocod/Acetam 5/325 Mg Tablet PO 1 tab Q4HR PRN Administration Moderate Pain (Level 4-6) Piperacillin Sod/Tazobactam 100 mls @ 25 mls/hr 09/24/23 00:00 09/26/23 04:18 Sod 3.375 gm/ Sodium Chloride IV Infused Q8H [facility]A Infusion Vancomycin HCl 2 gm/ Sodium 500 mls @ 250 mls/hr 09/25/23 18:00 09/26/23 05:53 Chloride IV 250 mls/hr Q12H LAURA Administration Sodium Chloride 10 ml 09/23/23 17:00 09/26/23 04:18 Sodium Chloride Flush 0.9% 10 Ml Syringe IVP 10 ml 0100,0900,1700 LAURA Administration - Physical Exam Comments/Other: RLE: Improved redness about the lateral forefoot. continued serosang drainage however no purulence necrotic tissue about the ulcer insensate throughout the entire foot fires TA, EHL, gastroc 2+ DP and PT pulses Impression/Plan - Problem List Problem List: 43yo M with lateral foot ulcer in the setting of charcot neuropathy. Continues to have clinical improvement however has necrotic tissue about the ulcer. Plan for the OR today. THe risks, benefits and alternatives of the procedure were discussed to include but are not limited to bleeding, infection, damage to surrounding tissues, pain, foot stiffness, need for additional surgeries, and anesthesia risks such as heart attack, stoke or . Patient understood these risks and wanted to move forward with the procedure. He was consented for a right foot I&D with possible amputation. Plan for the OR today. Carter Hernandez MD
[2023-09-26] MEDS ORDERED: METOCLOPRAMIDE 10 MG/2 ML VIAL IVP PRN (11:25)
[2023-09-26] MEDS ORDERED: fentaNYL 100 MCG/2 ML VIAL IVP PRN (11:25)
[2023-09-26] MEDS ORDERED: ePHEDrine 50 MG/ML VIAL IVP PRN (11:25)
[2023-09-26] MEDS ORDERED: ATROPINE ABBOJECT 1 MG/10 ML SYRINGE IVP PRN (11:25)
[2023-09-26] MEDS ORDERED: ONDANSETRON 4 MG/2 ML VIAL IVP PRN (11:25)
[2023-09-26] MEDS ORDERED: HYDROmorphone 0.5 MG/0.5 ML SYRINGE IVP PRN (11:25)
[2023-09-26] MEDS ORDERED: NALOXONE 0.4 MG/ML VIAL IVP PRN (11:25)
[2023-09-26] MEDS ORDERED: MORPHINE 2 MG/ML CARPUJECT IVP PRN (11:25)
--- NOTE | 2023-09-26 11:25 | ANESTHESIA ---
Pre-Anesthesia VS, & Labs - Diagnosis R foot ulcer and abcess - Procedure R foot I&D possible ray amputation Vital Signs: Temp Pulse Resp BP Pulse Ox O2 Flow Rate 36.5 C 71 18 114/55 L 96 09/26/23 00:00 09/26/23 00:00 09/26/23 00:00 09/26/23 00:00 09/26/23 00:00 Height: 6 ft 5 in Weight (kg): 174.497 kg Body Mass Index: 45.6 BMI Classification: Morbidly Obese - NPO >8 hours - Lab Results Current Lab Results: Laboratory Tests 09/25/23 12:37: Last Dose Date 09/25/2023, Last Dose Time 00:58, Vancomycin Trough 6.1 09/25/23 05:45: C-Reactive Protein 14.3 H 09/25/23 05:45: ESR 99 H 09/25/23 05:45: WBC 8.3, RBC 4.39 L, Hgb 12.3 L, Hct 39.6 L, MCV 90.2, MCH 28.0, MCHC 31.1 L, RDW 12.5, Plt Count 329, MPV 10.6, Neut # (Auto) 5.7, Lymph # (Auto) 1.8, [place] # (Auto) 0.5, Eos # (Auto) 0.1, Baso # (Auto) 0.0, Absolute Nucleated RBC 0.00, Nucleated RBC % 0.0 09/24/23 05:51: Sodium 138, Potassium 4.6 H, Chloride 105, Carbon Dioxide 24, Anion Gap 9.0, BUN 11, Creatinine 0.8, Estimated GFR (MDRD) 106, Glucose 115 H, Calcium 9.5, Phosphorus 3.6, Magnesium 2.1 09/23/23 12:50: Procalcitonin Immunoas 0.06 09/23/23 12:50: ESR 57 H 09/23/23 12:50: Lactic Acid 1.1 09/23/23 12:50: Sodium 136, Potassium 4.0, Chloride 103, Carbon Dioxide 26, Anion Gap 7.0, BUN 10, Creatinine 0.8, Estimated GFR (MDRD) 106, Glucose 102, Calcium 9.5, Total Bilirubin 0.4, AST 13, ALT 25, Alkaline Phosphatase 87, C- Reactive Protein 14.8 H, Total Protein 7.0, Albumin 3.6, Globulin 3.4, Albumin/Globulin Ratio 1.1 09/23/23 12:50: WBC 14.1 H, RBC 4.62 L, Hgb 13.1 L, Hct 41.4 L, MCV 89.6, MCH 28.4, MCHC 31.6 L, RDW 12.6, Plt Count 360, MPV 10.6, Neut # (Auto) 9.8 H, Lymph # (Auto) 2.7, [place] # (Auto) 1.3 H, Eos # (Auto) 0.3, Baso # (Auto) 0.0, Absolute Nucleated RBC 0.00, Nucleated RBC % 0.0 Lab results reviewed: Yes Fish Bones: 09/25/23 05:45 09/24/23 05:51 Home Medications and Allergies Home Medications: Ambulatory Orders ALPRAZolam [Alprazolam] 0.5 mg PO PRN PRN 09/24/23 Propranolol HCl [Inderal LA] 160 mg PO DAILY 09/24/23 Active Medications Acetaminophen (Acetaminophen 325 Mg Tablet) 650 mg PO Q4HR PRN PRN Reason: Pain or Fever > 38C (100.4F) Last Admin: 09/23/23 17:30 Dose: 650 mg Hydrocodone Bitart/Acetaminophen (Hydrocod/Acetam 5/325 Mg Tablet) 1 tab PO Q4HR PRN PRN Reason: Moderate Pain (Level 4-6) Last Admin: 09/23/23 17:30 Dose: 1 tab Piperacillin Sod/Tazobactam (Sod 3.375 gm/ Sodium Chloride) 100 mls @ 25 mls/hr IV Q8H [facility] Last Admin: 09/26/23 08:37 Dose: 25 mls/hr Vancomycin HCl 2 gm/ Sodium (Chloride) 500 mls @ 250 mls/hr IV Q12H [facility] Last Infusion: 09/26/23 08:37 Dose: Infused Sodium Chloride (Sodium Chloride Flush 0.9% 10 Ml Syringe) 10 ml IVP PRN PRN PRN Reason: NEEDED PER PROVIDER ORDERS Sodium Chloride (Sodium Chloride Flush 0.9% 10 Ml Syringe) 10 ml IVP 0100,0900,1700 [facility] Last Admin: 09/26/23 04:18 Dose: 10 ml Lisinopril [Zestril] 10 mg PO DAILY 08/31/23 Propranolol [Inderal] 40 mg PO DAILY PRN 08/31/23 cloNIDine [Catapres] 0.1 mg PO DAILY 08/31/23 ALPRAZolam [Alprazolam] 0.5 mg PO PRN PRN 09/24/23 Propranolol HCl [Inderal LA] 160 mg PO DAILY 09/24/23 Allergies/Adverse Reactions: Allergies Allergy/AdvReac Type Severity Reaction Status Date / Time No Known Drug Allergies Allergy Verified 09/23/23 11:57 Anes History & Medical History - Anesthetic History Anesthesia Complications: reports: No previous complications Family history of Anesthesia Complications: Denies Family history of Malignant Hyperthermia: Denies - Medical History Cardiovascular: reports: Hypertension Pulmonary: reports: None Gastrointestinal: reports: None Urinary: reports: None Neuro: reports: Peripheral neuropathy Musculoskeletal: reports: Other Endocrine/Autoimmune: reports: None Blood Disorders: reports: None Skin: reports: Other Smoking Status: Former smoker History of Cancer?: No Other Past Medical History: Charcot disease on both feet per pt - Surgical History Orthopedic: reports: Other Exam General: Alert, Oriented x3, Cooperative Dental: WNL Mouth Opening: Greater than 4 Fingerbreadths Neck Mobility: Normal Mallampati classification: II Thyromental Distance: 4-6 cm Respiratory: Lungs clear, Normal breath sounds, No respiratory distress Cardiovascular: Regular rate Neurological: Normal speech Mental/Cognitive Status: Alert/Oriented X3, Normal for patient Cognitive Status: Within normal limits Plan Anesthesia Type: General (back up), MAC (insensate at B feet) Consent for Procedure(s) Verified and Reviewed: Yes Code Status: Attempt Resuscitation ASA classification: 2-Mild systemic disease Is this case an emergency?: No
[2023-09-26] MEDS: LACTATED RINGERS 1,000 ML IV SCH (12:26)
[2023-09-26] MEDS ORDERED: BUPIVACAINE 0.25% PF 30 ML VIAL ONE (12:37)
[2023-09-26] MEDS ORDERED: fentaNYL 100 MCG/2 ML VIAL ONE (12:46)
[2023-09-26] MEDS ORDERED: MIDAZOLAM 2 MG/2 ML VIAL ONE (12:46)
[2023-09-26] MEDS ORDERED: KETAMINE 200 MG/20 ML VIAL ONE (13:17)
[2023-09-26] MEDS ORDERED: PROPOFOL 200 MG/20 ML VIAL IVP ONE (13:34)
--- NOTE | 2023-09-26 14:05 | OPERATIVE REPORT ---
Operative Report - General Admit Date: 09/23/23 - Other Other Information/Narrative: Planned Procedure: RIGHT foot Incision and Drainage, possible amputation. Pre-Op Diagnosis: Right Foot Ulcer in the setting of Charcot Neuropathy Procedure Performed: RIGHT foot I&D - Procedure Note Estimated Blood Loss (mL): 10cc Indications: This is a 43-year-old man with a history of chorcot neuropathy who has recently developed a right foot ulcer with necrotic tissue. He was consented for surgical irrigation and debridement. An informed consent was obtained. Findings: The there was necrotic tissue deep within the wound. The Wound probed to bone and the fifth MTP joint. The capsule on the superior aspect of the fifth MTP joint felt to be violated. Otherwise the capsule remained intact. Complications: None - Other Other Information/Narrative: Since the patient's feet are complete and the insensate, it was decided that we would use sedation and no true anesthesia. The right foot was prepped and draped with Betadine. Initially we took a curette to the wound itself and the majority of the tissue was viable with quick bleeding. There was necrotic tissue deep within the wound that was debrided sharply with a knife. We also explored proximally where he has swelling along the lateral aspect near the base of the fifth metatarsal. We were unable to express any purulence throughout the entire wound. There did not appear to be a fluid collection in that area as well. Because of these findings we did not make any counterincisions and left everything intact. We also curetted about all the wound bed, bone and about the capsule. It was identified that there was a rent in the capsule on the superior aspect that penetrated into the joint. We were able to tissue samples and sent to the lab from the dorsum of the fifth metatarsal head and the soft tissue surrounding. The wound was then irrigated with 1 L of normal saline mixed with Betadine solution. There was no area that we could close. There remains soft tissue coverage however is subcutaneous tissue. The wounds were dressed with Xeroform ABD, Kerlix and Ousmane wrap. He was then awakened in the operating room and taken to the recovery room in a stable condition. Blood loss 10 cc. He will return to being an inpatient. Plan for continued antibiotic use. I would recommend transition to oral antibiotics per the medicine team. He should remain nonweightbearing in the right lower extremity. We also recommend starting him on aspirin daily for DVT prophylaxis. He should have dressing changes twice a day. It can be dressed with Xeroform, plains, ABD and coverage with an Ousmane wrap. Carter Hernandez MD ORTHO
--- NOTE | 2023-09-26 15:36 | ANESTHESIA POST OP EVALUATION ---
Anesthesia Post Eval - Post Anesthesia Eval Vitals: Last Vital Signs Temp 36.6 C 09/26/23 14:25 Pulse 72 09/26/23 14:25 Resp 16 09/26/23 14:25 BP 134/76 H 09/26/23 14:25 Pulse Ox 97 09/26/23 14:25 O2 Flow Rate CV Function Including HR & BP: Stable Pain Control: Satisfactory Nausea & Vomiting: Negative Mental Status: Baseline Respiratory Status: Airway Patent Hydration Status: Satisfactory Anesthesia Complications: None
[2023-09-26] MEDS: ASPIRIN EC 81 MG TABLET PO SCH (21:33)
--- NOTE | 2023-09-26 22:37 | PROVIDER PROGRESS NOTE ---
Assessment/Plan - Problem List (1) Osteomyelitis Qualifiers: Osteomyelitis type: other acute Osteomyelitis location: foot Laterality: right Qualified Code(s): M86.171 - Other acute osteomyelitis, right ankle and foot Assessment/Plan: Patient underwent right foot incision and drainage today in the operating room by Dr. Hernandez. Continue treatment with Zosyn and vancomycin.Appreciate orthopedics assistance. Patient to obtain a PICC tomorrow to continue IV antibiotics at home. (2) Cellulitis Qualifiers: Site of cellulitis: extremity Site of cellulitis of extremity: lower extremity Laterality: right Qualified Code(s): L03.115 - Cellulitis of right lower limb Assessment/Plan: See above (3) Foot ulcer Qualifiers: Laterality: right Assessment/Plan: See above - Current Meds Current Meds: Current Medications Generic Name Dose Route Start Last Admin Trade Name Freq PRN Reason Stop Dose Admin Acetaminophen 650 mg 09/23/23 17:09 09/23/23 17:30 Acetaminophen 325 Mg Tablet PO 650 mg Q4HR PRN Administration Pain or Fever > 38C (100.4F) Hydrocodone Bitart/Acetaminophen 1 tab 09/23/23 17:08 09/26/23 21:33 Hydrocod/Acetam 5/325 Mg Tablet PO 1 tab Q4HR PRN Administration Moderate Pain (Level 4-6) Aspirin 81 mg 09/26/23 21:00 09/26/23 21:33 Aspirin Ec 81 Mg Tablet PO 81 mg BID LAURA Administration Piperacillin Sod/Tazobactam 100 mls @ 25 mls/hr 09/24/23 00:00 09/26/23 21:03 Sod 3.375 gm/ Sodium Chloride IV Infused Q8H LAURA Infusion Vancomycin HCl 2 gm/ Sodium 500 mls @ 250 mls/hr 09/25/23 18:00 09/26/23 19: 55 Chloride IV Infused Q12H LAURA Infusion Sodium Chloride 10 ml 09/23/23 17:00 09/26/23 17:03 Sodium Chloride Flush 0.9% 10 Ml Syringe IVP Not Given 0100,0900,1700 LAURA - Lab Result Fish Bone Diagrams: 09/25/23 05:45 09/24/23 05:51 - Additional Planning My Orders: My Active Orders 09/26/23 10:14 PICC Line Care [RC] Q4H PICC Line Insert [RC] .ONCE Subjective - Subjective Patient Reports: Other Objective Vital Signs: Vital Signs - 24 hr 09/26/23 09/26/23 09/26/23 00:00 12:43 13:55 Temperature 36.5 C 37 C 36.9 C Heart Rate [ 71 69 66 Brachial] Respiratory 18 16 16 Rate Blood Pressure 114/55 L [Left Brachial artery] Blood Pressure 131/75 H 127/75 [Right Brachial artery] O2 Saturation 96 97 97 09/26/23 09/26/23 09/26/23 14:25 15:25 16:25 Temperature 36.6 C 36.9 C 36.9 C Heart Rate [ 72 80 73 Brachial] Respiratory 16 20 20 Rate Blood Pressure 134/76 H 114/59 L 123/65 [Left Brachial artery] Blood Pressure [Right Brachial artery] O2 Saturation 97 96 98 09/26/23 20:25 Temperature 37.0 C Heart Rate [ 72 Brachial] Respiratory 16 Rate Blood Pressure 116/57 L [Left Brachial artery] Blood Pressure [Right Brachial artery] O2 Saturation 93 Oxygen O2 Source Room air I&O (Last 24 Hrs): Intake and Output Totals x24h 09/24/23 09/25/23 09/26/23 23:59 23:59 23:59 Intake Total 3353 1300 5196.667 Balance 3353 1300 5196.667 - Results Results: Laboratory Results WBC 8.3 x10^3/uL (4.8-10.8) 09/25/23 05:45 RBC 4.39 10^6/uL (4.70-6.10) L 09/25/23 05:45 Hgb 12.3 g/dL (14.0-18.0) L 09/25/23 05:45 Hct 39.6 % (42.0-52.0) L 09/25/23 05:45 MCV 90.2 fL (80.0-94.0) 09/25/23 05:45 MCH 28.0 pg (27.0-31.0) 09/25/23 05:45 MCHC 31.1 g/dL (32.0-36.0) L 09/25/23 05:45 RDW 12.5 % (12.0-15.0) 09/25/23 05:45 Plt Count 329 10^3/uL (130-450) 09/25/23 05:45 MPV 10.6 fL (7.4-11.4) 09/25/23 05:45 Neut # (Auto) 5.7 10^3/uL (1.5-6.6) 09/25/23 05:45 Lymph # (Auto) 1.8 10^3/uL (1.5-3.5) 09/25/23 05:45 Coffey # (Auto) 0.5 10^3/uL (0.0-1.0) 09/25/23 05:45 Eos # (Auto) 0.1 10^3/uL (0.0-0.7) 09/25/23 05:45 Baso # (Auto) 0.0 10^3/uL (0.0-0.1) 09/25/23 05:45 Absolute Nucleated RBC 0.00 x10^3/uL 09/25/23 05:45 Nucleated RBC % 0.0 /100WBC 09/25/23 05:45 ESR 99 mm/Hr (0-15) H 09/25/23 05:45 Sodium 138 mmol/L (135-145) 09/24/23 05:51 Potassium 4.6 mmol/L (3.5-4.5) H 09/24/23 05:51 Chloride 105 mmol/L (101-111) 09/24/23 05:51 Carbon Dioxide 24 mmol/L (21-32) 09/24/23 05:51 Anion Gap 9.0 (6-13) 09/24/23 05:51 BUN 11 mg/dL (6-20) 09/24/23 05:51 Creatinine 0.8 mg/dL (0.6-1.3) 09/24/23 05:51 Estimated GFR (MDRD) 106 (>89) 09/24/23 05:51 Glucose 115 mg/dL (74-104) H 09/24/23 05:51 Lactic Acid 1.1 mmol/L (0.5-2.2) 09/23/23 12:50 Calcium 9.5 mg/dL (8.5-10.3) 09/24/23 05:51 Phosphorus 3.6 mg/dL (2.5-5.0) 09/24/23 05:51 Magnesium 2.1 mg/dL (1.7-2.3) 09/24/23 05:51 Total Bilirubin 0.4 mg/dL (0.2-1.0) 09/23/23 12:50 AST 13 IU/L (10-42) 09/23/23 12:50 ALT 25 IU/L (10-60) 09/23/23 12:50 Alkaline Phosphatase 87 IU/L (42-121) 09/23/23 12:50 C-Reactive Protein 14.3 mg/dL (<0.5) H 09/25/23 05:45 Total Protein 7.0 g/dL (6.4-8.9) 09/23/23 12:50 Albumin 3.6 g/dL (3.2-5.5) 09/23/23 12:50 Globulin 3.4 g/dL (2.1-4.2) 09/23/23 12:50 Albumin/Globulin Ratio 1.1 (1.0-2.2) 09/23/23 12:50 Procalcitonin Immunoas 0.06 ng/mL (<0.5) 09/23/23 12:50 Last Dose Date 09/25/2023 09/25/23 12:37 Last Dose Time 00:58 09/25/23 12:37 Vancomycin Trough 6.1 ug/mL 09/25/23 12:37 Sepsis Event Note (H) - Evaluation Possible source of Sepsis: positive: Bone/Joint
[2023-09-27 05:52] LABS: BASOPHILS % (AUTO) 0.4 %; EOSINOPHILS # (AUTO) 0.2 10^3/uL (0.0-0.7); EOSINOPHILS % (AUTO) 2.3 %; HCT - HEMATOCRIT 38.3 % (42.0-52.0); LYMPHOCYTES # (AUTO) 2.1 10^3/uL (1.5-3.5); LYMPHOCYTES % (AUTO) 27.3 %; MEAN CORPUSCULAR HEMOGLOBIN 28.3 pg (27.0-31.0); MEAN CORPUSCULAR HGB CONC 31.3 g/dL (32.0-36.0); MEAN CORPUSCULAR VOLUME 90.3 fL (80.0-94.0); MEAN PLATELET VOLUME 10.3 fL (7.4-11.4); MONOCYTES # (AUTO) 0.6 10^3/uL (0.0-1.0); NEUTROPHILS # (AUTO) 4.8 10^3/uL (1.5-6.6); NEUTROPHILS % (AUTO) 61.2 %; PLT - PLATELET COUNT 357 10^3/uL (130-450); RED BLOOD COUNT 4.24 10^6/uL (4.70-6.10); RED CELL DISTRIBUTION WIDTH 12.7 % (12.0-15.0); WHITE BLOOD COUNT 7.9 x10^3/uL (4.8-10.8)
--- NOTE | 2023-09-27 13:36 | ANESTHESIA PROCEDURE NOTE ---
Anesth Central Line Template - Central Line Central Line Preparation: Consent Obtained Central line location: Right Brachial Central line type: PICC Double Lumen Central line catheter tip site resides: Superior vena cava (SVC) Central line aftercare: Chlorhexidine disc placed, Secured, Placement confirmed, No pneumothorax, No complications, Bundle checklist complete, Pt tolerated well
--- NOTE | 2023-09-27 13:39 | CONSULTATION NOTE ---
Consultation Report: Informed consent obtained. RUE PICC line placed by Tomi Baker RN under the supervision of Julianna Jane CRNA. U/S guided, steril technique maintained. Line trimmed to 50cm with 0cm exposed. Pt tolerated well. No complications. Placement confirmed with port CXR, tip at SVC. Sterile dressing applied.
--- NOTE | 2023-09-27 13:58 | XRAY Report ---
PROCEDURE: Chest for Line Placement INDICATIONS: PICC placement TECHNIQUE: One view of the chest was acquired. COMPARISON: None. FINDINGS: Surgical changes and devices: ] PICC line is present with distal tip projecting over the proximal SV C. Lungs and pleura: No pleural effusions or pneumothorax. Lungs are clear. Mediastinum: Mediastinal contours appear normal. Heart size is normal. Bones and chest wall: No suspicious bony lesions. Overlying soft tissues appear unremarkable. IMPRESSION: No acute cardiopulmonary process. Reviewed by: Judy De Los Santos MD on 09/27/2023 1:57 PM PDT Approved by: Judy De Los Santos MD on 09/27/2023 1:57 PM PDT Station ID: [id number]
--- NOTE | 2023-09-27 14:00 | DISCHARGE SUMMARY ---
"Discharge Summary Admit Date: 09/23/23 Discharge Date: 09/27/23 Discharging Provider: Leonel Kaye MD Primary Care Provider: Rossi Griffiths Code Status: Attempt Resuscitation Condition at Discharge: Stable Discharge Disposition: 01 Home, Self Care Discharge Facility Name: [facility] - DIAGNOSES Admission Diagnoses: (1) Osteomyelitis (2) Cellulitis (3) Foot ulcer Discharge Diagnoses with Status of Each Condition: (1) Osteomyelitis (2) Cellulitis (3) Foot ulcer - HPI History of Present Illness: Tien Osborne is a 43-year-old man with a past medical history significant for idiopathic neuropathy and Charcot joints of the feet. He reports approximately 6 weeks ago he slept in his boots and this is resulted in a right foot ulcer. He was evaluated at the [facility] emergency room and was being followed in the emergency room for the wound. The wound continue to become progressively worse and he was placed on Keflex and Bactrim. Over the last 4 to 5 days he is complaining of shaking chills and fever. He has no other complaints at this time.In the emergency room, patient received Zosyn and vancomycin. - CONSULTS | PROCEDURES Procedures: MRI performed on September 24, 2023 revealed heterogeneous enhancement and edema signal which extends to the fifth MTP joint space and fifth metatarsal head. Findings are consistent with osteomyelitis. Orthopedic surgery was consulted and Dr. Hernandez recommended a right foot incision and drainage. The patient was taken to the operating room on September 26, 2023 and underwent right foot incision and drainage. On September 26, the patient had a PICC line placed. Plan is for patient to discharge home on IV antibiotics (Ceftriaxone 2 grams daily through PICC and metronidazole 500 mg three times a day) and follow-up with her primary care provider, orthopedic surgery and Dr. Trujillo of infectious disease. - HOSPITAL COURSE Hospital Course: Tien Osborne is a 43-year-old man with a past medical history significant for idiopathic neuropathy and Charcot joints of the feet. He reports approximately 6 weeks ago he slept in his boots and this is resulted in a right foot ulcer. He was evaluated at the [facility] emergency room and was being followed in the emergency room for the wound. The wound continue to become progressively worse and he was placed on Keflex and Bactrim. Over the last 4 to 5 days he is complaining of shaking chills and fever. He has no other complaints at this time.In the emergency room, patient received Zosyn and vancomycin. - ALLERGIES Allergies/Adverse Reactions: Allergies Allergy/AdvReac Type Severity Reaction Status Date / Time No Known Drug Allergies Allergy Verified 09/23/23 11:57 - MEDICATIONS Home Medications: Ambulatory Orders Medication Instructions Recorded Confirmed Lisinopril [Zestril] 10 mg PO DAILY 08/31/23 09/24/23 Propranolol [Inderal] 40 mg PO DAILY PRN 08/31/23 09/24/23 cloNIDine [Catapres] 0.1 mg PO DAILY 08/31/23 09/24/23 ALPRAZolam [Alprazolam] 0.5 mg PO PRN PRN 09/24/23 09/24/23 Propranolol HCl [Inderal LA] 160 mg PO DAILY 09/24/23 09/24/23 Aspirin EC [Ecotrin] 81 mg PO BID #60 tab 09/27/23 cefTRIAXone [Rocephin 2 gram] 2 gm IV DAILY ml 09/27/23 metroNIDAZOLE [Flagyl] 500 mg PO TID #90 tab 09/27/23 - PHYSICAL EXAM AT DISCHARGE General Appearance: positive: No acute distress Eyes Bilateral: positive: Normal inspection, PERRL, No lid inflammation Neck: positive: Thyroid nml, No JVD, Trachea midline Respiratory: positive: Other Cardiovascular: positive: Crepitus (Positive S1-S2 no extra heart sounds.) Abdomen: positive: Other (Obese soft nontender nondistended positive bowel sounds.) Skin: positive: No rash Extremities: positive: No pedal edema, Other (Bandage in place over left foot.) Neurologic/Psychiatric: positive: Oriented x3, CN's nml (2-12) - LABS Result Diagrams: 09/27/23 05:43 09/24/23 05:51 - SEPSIS Possible source of Sepsis: Bone/Joint - FOLLOW UP Follow Up: Sukhjinder PRABHAKAR - TIME SPENT Time Spent in Discharge (Minutes): 28"
--- NOTE | 2023-09-27 14:00 | Discharge Plan ---
Discharge Plan Problem Reviewed?: Yes Disposition: 01 Home, Self Care Prescriptions: Aspirin EC [Ecotrin] 81 mg PO BID #60 tab metroNIDAZOLE [Flagyl] 500 mg PO TID #90 tab Diet: Regular Activity Restrictions: Activity as Tolerated Shower Restrictions: No Driving Restrictions: Yes (Caution driving with right foot ) Weight Bearing: No weight on right foot Health Concerns: History of Present Illness: Tien Osborne is a 43-year-old man with a past medical history significant for idiopathic neuropathy and Charcot joints of the feet. He reports approximately 6 weeks ago he slept in his boots and this is resulted in a right foot ulcer. He was evaluated at the [facility] emergency room and was being followed in the emergency room for the wound. The wound continue to become progressively worse and he was placed on Keflex and Bactrim. Over the last 4 to 5 days he is complaining of shaking chills and fever. He has no other complaints at this time.In the emergency room, patient received Zosyn and vancomycin. Hospital Course: Broad-spectrum antibiotic coverage continued with Zosyn and vancomycin. MRI performed on September 24, 2023 revealed heterogeneous enhancement and edema signal which extends to the fifth MTP joint space and fifth metatarsal head. Findings are consistent with osteomyelitis. Orthopedic surgery was consulted and Dr. Hernandez recommended a right foot incision and drainage. The patient was taken to the operating room on September 26, 2023 and underwent right foot incision and drainage. On September 26, the patient had a PICC line placed. Plan is for patient to discharge home on IV antibiotics (Ceftriaxone 2 grams daily through PICC and metronidazole 500 mg three times a day) and follow-up with her primary care provider, orthopedic surgery and Dr. Trujillo of infectious disease. Plan of Treatment: 1. Continue all medications as prescribed. 2. Please follow-up with your primary care provider Rossi PRABHAKAR. 3. A referral has been placed for you to see Dr. Kerrie Trujillo at [facility] ( ) 4. Please change dressing twice daily. It should be dressed with Xeroform, [place], Kerlix, ABD and [place] Wrap. 5. Orthopedic Instuctions: * Always ambulate with front wheeled walker until instructed otherwise by your surgeon. Please refer to the booklet provided at [facility] [place] for instructions for ambulation. You can weight-bear as tolerated on the affected extremity. * Avoid crossing your legs when sitting in low chairs to reduce chance of hip dislocation * Follow the pre-operatively agreed upon pain regimen described in the [facility] booklet. As a reminder, the discussed medications include using acetaminophen, ibuprofen, oxycodone and tramadol. * Ice area to decrease pain and swelling * Take Aspirin 81 mg twice daily for 6 weeks for blood clot prevention * Leave dressing in place until follow up in office. You can shower with the dressing in place if it is kept dry and neat * Please call the office if you experience fever, chills, chest pain, shortness of breath, nausea, vomiting, drainage or bleeding * You are scheduled for follow-up with the orthopedic clinic in 5 days Care Goals: Goal of care is to resolve the infection of right foot and to return to baseline function. Assessment: (1) Osteomyelitis Qualifiers: Osteomyelitis type: other acute Osteomyelitis location: foot Laterality: right Qualified Code(s): M86.171 - Other acute osteomyelitis, right ankle and foot Assessment/Plan: Patient underwent right foot incision and drainage today in the operating room by Dr. Hernandez. Continue treatment with Zosyn and vancomycin. (2) Cellulitis Qualifiers: Site of cellulitis: extremity Site of cellulitis of extremity: lower extremity Laterality: right Qualified Code(s): L03.115 - Cellulitis of right lower limb Assessment/Plan: See above (3) Foot ulcer Qualifiers: Laterality: right Assessment/Plan: See above No Smoking: If you smoke, Please STOP! Call for help. Follow-up with: Rossi Griffiths ARNP [Primary Care Provider] -
[2023-09-27 17:40] VITALS: BP 144/89; O2SAT 96
[2023-09-28] MEDS ORDERED: cefTRIAXone 2 GM in SODIUM CHLORIDE 0.9% MINIBAG 100 ML IV SCH (21:00)
== END 2023-09-27 21:18 | disposition home or self-care (01) | DRG 540 ==
LOC: ED 11:29 → MS2 14:31 → MS3 09-27 21:14
PROVIDERS: ADMIT Internal Medicine; ATTEND Internal Medicine
PROC: 0J9Q0ZZ Drainage of Right Foot Subcutaneous Tissue and Fascia, Open Approach (ICD-10-PCS; 2023-09-26)
PROC: 02HV33Z Insertion of Infusion Device into Superior Vena Cava, Percutaneous Approach (ICD-10-PCS; principal; 2023-09-27)
DX: M86.171 Other acute osteomyelitis, right ankle and foot (principal); A52.16 Charcot's arthropathy (tabetic); L03.115 Cellulitis of right lower limb; Z68.42 Body mass index [BMI] 45.0-49.9, adult; G60.9 Hereditary and idiopathic neuropathy, unspecified; I10 Essential (primary) hypertension; Z87.891 Personal history of nicotine dependence; L97.514 Non-pressure chronic ulcer of other part of right foot with necrosis of bone; E66.01 Morbid (severe) obesity due to excess calories; F41.9 Anxiety disorder, unspecified
CPT/HCPCS: 36415; 73630; 73720; 80048; 80053; 80202; 81599; 83605; 83735; 84100; 84145; 85025; 85651; 86140; 87040; 87070; 87077; 87205; 87640; 96365; 97161; 99284; 99285; A9270; A9575; J3370; J3490; J7120

== ENCOUNTER 2023-11-11 16:36 | Emergency (ER) | payer MEDICARE ==
--- NOTE | 2023-11-11 17:59 | ED Physician Documentation ---
History of Present Illness - Stated complaint Stated Complaint: RT SIDE PX - Chief complaint Chief Complaint: General - History obtained from History obtained from: Patient - History of Present Illness Timing: Today Pain level max: 4 Pain level now: 4 - Additonal information Additional information: 43-year-old male states that he was receiving IV antibiotics through a PICC line. He states the PICC line was pulled 4 days ago. He started having pain in the arm today and noticed that the arm was swollen and slightly purpleish in color. Nothing makes it better or worse. No numbness or tingling. No weakness. Has not had blood clots before. He states the IV antibiotic was for infection in his leg but he does not remember what the diagnosis was. Review of Systems Constitutional: denies: Fever, Chills Nose: denies: Rhinorrhea / runny nose, Congestion GI: denies: Vomiting : denies: Dysuria Musculoskeletal: denies: Back pain Neurologic: denies: Headache PD PAST MEDICAL HISTORY - Past Medical History Past Medical History: Yes Cardiovascular: Hypertension Respiratory: None Neuro: Peripheral neuropathy Endocrine/Autoimmune: None GI: None : None HEENT: None Psych: Anxiety Musculoskeletal: Other Derm: Other - Past Surgical History Past Surgical History: Yes Ortho: Other - Present Medications Home Medications: Ambulatory Orders Medication Instructions Recorded Confirmed Lisinopril [Zestril] 10 mg PO DAILY 08/31/23 10/02/23 Propranolol [Inderal] 40 mg PO DAILY PRN 08/31/23 10/02/23 cloNIDine [Catapres] 0.1 mg PO DAILY 08/31/23 10/02/23 ALPRAZolam [Alprazolam] 0.5 mg PO PRN PRN 09/24/23 10/02/23 Propranolol HCl [Inderal LA] 160 mg PO DAILY 09/24/23 10/02/23 Aspirin EC [Ecotrin] 81 mg PO BID #60 tab 09/27/23 10/02/23 cefTRIAXone [Rocephin 2 gram] 2 gm IV DAILY ml 09/27/23 10/02/23 metroNIDAZOLE [Flagyl] 500 mg PO TID #90 tab 09/27/23 10/02/23 Apixaban [Eliquis] 0 mg PO BID #74 tablet 11/11/23 - Allergies Allergies/Adverse Reactions: Allergies Allergy/AdvReac Type Severity Reaction Status Date / Time No Known Drug Allergies Allergy Verified 11/11/23 16:44 - Social History Does the pt smoke?: No Smoking Status: Never smoker Does the pt drink ETOH?: No Does the pt have substance abuse?: Yes - Immunizations Immunizations are current?: Yes - POLST Patient has POLST: No PD ED PE NORMAL - Vitals Vital signs reviewed: Yes - General General: Alert and oriented X 3, No acute distress - HEENT HEENT: Moist mucous membranes - Neck Neck: Supple, no meningeal sign - Cardiac Cardiac: RRR, Strong equal pulses - Respiratory Respiratory: No respiratory distress, Clear bilaterally - Derm Derm: Warm and dry - Extremities Extremities: Other (Patient with purple discoloration to the right arm. There is diffuse swelling over the arm. Neurovascular intact. Brisk cap refill.) - Neuro Neuro: Alert and oriented X 3 Results - Vitals Vitals: Vital Signs - 24 hr 11/11/23 11/11/23 16:44 18:52 Temperature 36.8 C Heart Rate 73 73 Respiratory 16 18 Rate Blood Pressure 140/90 H 147/87 H O2 Saturation 96 97 Oxygen O2 Source Room air - Rads (name of study) Right upper extremity ultrasound Relevant Findings:: Final report received, See rad report PD Medical Decision Making - ED course Complexity details: reviewed results, re-evaluated patient, considered differential, d/w patient ED course: Patient with an extensive DVT in the right upper extremity, likely secondary to the recent PICC line. He has no contraindications to anticoagulation. We reviewed precautions for bleeding. Patient was given his first dose of Eliquis here. Will prescribe Eliquis for home. Will have him follow-up with his doctor for further care. Patient will return if he worsens. Patient counseled regarding signs and symptoms for which I believe and urgent re-evaluation would be necessary. Patient with good understanding of and agreement to plan and is comfortable going home at this time This document was made in part using voice recognition software. While efforts are made to proofread this document, sound alike and grammatical errors may occur. Departure - Departure Disposition: 01 Home, Self Care Clinical Impression: Deep vein thrombosis (DVT) of right upper extremity Qualifiers: Affected thrombotic vein of extremity: unspecified vein of extremity Chronicity: acute Qualified Code(s): I82.621 - Acute embolism and thrombosis of deep veins of right upper extremity Condition: Good Instructions: ED DVT Follow-Up: Rossi Griffiths ARNP [Primary Care Provider] - Within 1 week Prescriptions: Apixaban [Eliquis] 0 mg PO BID #74 tablet Comments: Your prescription was sent to [facility] in [place]. You have a blood clot in your right arm from the PICC line. This is known as a deep venous thrombosis. We have placed you on a blood thinner which should dissolve the clot slowly over time. Please return if you develop any strokelike symptoms, severe chest pain, or any other new or worrisome symptoms. As we discussed you do need to be careful about any bleeding risks. You need to be seen immediately if you sustain a head injury. Do not go up on ladders. Do not participate in any contact sports. If you notice any blood in your stool, please follow-up with your doctor or return here for evaluation. Forms: PCP List Discharge Date/Time: 11/11/23 18:52
[2023-11-11] MEDS: APIXABAN 5 MG TABLET PO STA (18:48)
[2023-11-11 19:01] VITALS: BP 147/87; O2SAT 97
--- NOTE | 2023-11-11 19:14 | Ultrasound Report ---
PROCEDURE: Duplex Ext Veins Right INDICATIONS: R arm swelling, s/p PICC removal TECHNIQUE: Real-time imaging, as well as color and pulse Doppler interrogation, were performed of the lower extr emity deep veins from the inguinal ligament to the popliteal fossa. Attempted visualization of the ca lf veins was performed. COMPARISON: None. FINDINGS: There is nearly occlusive thrombus involving the right internal jugular vein with incomple te compressibility and lack of color flow. Occlusive thrombus is seen in the subclavian vein. There i s slow flow within the brachial, basilic, and cephalic veins without loss of compressibility. IMPRESSION: Occlusive deep venous thrombus within the right internal jugular vein and right subclavian vein. Slow flow seen in the more peripheral veins. Concordant preliminary findings were conveyed to Dr. Angulo by the chlorinator operator on 11/11/2023 at 6:15 P M. Reviewed by: Yuriy Muñoz MD on 11/11/2023 7:12 PM PDT Approved by: Yuriy Muñoz MD on 11/11/2023 7:12 PM PDT Station ID: [id number]
== END 2023-11-11 18:52 | disposition home or self-care (01) ==
LOC: ED 16:36
DX: I82.621 Acute embolism and thrombosis of deep veins of right upper extremity (principal); I10 Essential (primary) hypertension; G62.9 Polyneuropathy, unspecified; Z79.01 Long term (current) use of anticoagulants; Z79.899 Other long term (current) drug therapy
CPT/HCPCS: 93971; 99283; 99284; A9270

== ENCOUNTER 2023-11-15 17:00 | Outpatient (CLI) | payer MEDICARE ==
[2023-11-15] MEDS ORDERED: iohexoL-300 100 ML VIAL ONE (17:13)
[2023-11-15] MEDS: iohexoL-300 100 ML VIAL IVP ONE (17:33)
--- NOTE | 2023-11-15 18:11 | CT Report ---
PROCEDURE: Angio Chest INDICATIONS: ACUTE DVT CONTRAST: 100ml [id number] TECHNIQUE: After the administration of intravenous contrast, 2 mm axial images were acquired from the pulmonary apices to the posterior costophrenic angles during the arterial phase. In addition, 1 mm lung kernel and 5 mm soft tissue kernel reconstructions were performed. 3-dimensional coronal oblique maximum int ensity projection (MIP) reformats, 8 mm axial MIP, and 5 mm coronal and sagittal MPR reformats were t hen performed through the thorax. For radiation dose reduction, the following was used: automated exp osure control, adjustment of mA and/or kV according to patient size. COMPARISON: Chest radiograph dated 09/27/2023 FINDINGS: Image quality: Diagnostic. Large vessels: No filling defects within the opacified pulmonary arteries, accounting for motion and contrast timing. No evidence of acute aortic syndrome or aortic aneurysm. Lungs and pleura: No consolidation. No pleural effusions. No pneumothorax. No suspicious pulmonary n odules which require follow up. Bibasilar atelectasis. Mediastinum: Heart size is normal. No pericardial effusion. No large vessel abnormality. No mediastin al adenopathy by size criteria. Chest wall and lower neck: Thyroid is unremarkable. No axillary or supraclavicular adenopathy by size . Bones: No aggressive osseous abnormality. Upper Abdomen: Unremarkable. IMPRESSION: No pulmonary embolus. No acute cardiopulmonary abnormalities. Reviewed by: Carter Winston MD on 11/15/2023 6:09 PM PDT Approved by: Carter Winston MD on 11/15/2023 6:09 PM PDT Station ID: [id number]
--- NOTE | 2023-11-16 11:25 | XRAY Report ---
PROCEDURE: Foot 3+V RT INDICATIONS: FOOT ULCER, RIGHT TECHNIQUE: 3 views of the foot were acquired. COMPARISON: Right foot x-rays, 09/23/2023. Foot MRI 09/24/2023 FINDINGS: Bones: Ulceration at the fifth metatarsal head, new compared to 09/23/2023. Possible associated fractu re. Overlying skin wound. Charcot arthropathy at the midfoot is overall similar. Pes planus. Plantar calcaneal spur. No suspicious bony lesions. Soft tissues: No tibiotalar joint effusion. Achilles tendon appears normal. Surgical clips of the posterior lateral right foot. IMPRESSION: Marked progressive osteomyelitis at the fifth metatarsal head. Midfoot Charcot arthropathy. Reviewed by: Sam Bales MD on 11/16/2023 11:24 AM PDT Approved by: Sam Bales MD on 11/16/2023 11:24 AM PDT Station ID: [id number]
== END 2023-11-15 17:01 | disposition home or self-care (01) ==
LOC: DI 17:00
PROVIDERS: ATTEND Physician Assistant Medical
DX: M86.9 Osteomyelitis, unspecified (principal); M14.671 Charcot's joint, right ankle and foot; L97.519 Non-pressure chronic ulcer of other part of right foot with unspecified severity; I82.409 Acute embolism and thrombosis of unspecified deep veins of unspecified lower extremity
CPT/HCPCS: 71275; 73630; Q9967

== ENCOUNTER 2023-12-12 08:25 | Outpatient (CLI) | payer MEDICARE ==
--- NOTE | 2023-12-12 22:11 | XRAY Report ---
PROCEDURE: Foot 3+V RT INDICATIONS: ACUTE OSTEOMYELITIS R ANKLE FOOT TECHNIQUE: 3 views of the foot were acquired. COMPARISON: X-ray foot 11/15/2023 FINDINGS: Bones: No fractures or dislocations. Previous erosive appearance of the fifth metatarsal head is rel atively stable. Extensive midfoot Charcot-like arthropathy is present. Pes planus is present. Soft tissues: No tibiotalar joint effusion. Achilles tendon appears normal. IMPRESSION: Stable appearance of fifth metatarsal head erosion consistent with osteomyelitis. Midfoot Charcot arthropathy. Reviewed by: Judy De Los Santos MD on 12/12/2023 10:10 PM PDT Approved by: Judy De Los Santos MD on 12/12/2023 10:10 PM PDT Station ID: [id number]
== END 2023-12-12 08:26 | disposition home or self-care (01) ==
LOC: DI 08:25
PROVIDERS: ATTEND Physician Assistant Surgical
DX: M86.171 Other acute osteomyelitis, right ankle and foot (principal); M14.671 Charcot's joint, right ankle and foot

== ENCOUNTER 2023-12-12 08:41 | Outpatient (CLI) | payer MEDICARE ==
[2023-12-12 09:20] LABS: CHOL/HDL RATIO 4.2 (<5.0); CHOLESTEROL 162 mg/dL; HDL CHOLESTEROL 39 mg/dL; LDL CHOLESTEROL,CALCULATED 104 mg/dL; LDL/HDL RATIO 2.7 (<3.6); TRIGLYCERIDES 93 mg/dL; VLDL CHOLESTEROL 19 mg/dL
[2023-12-12 10:05] LABS: THYROID STIMULATING HORMONE 1.07 uIU/mL (0.34-5.60)
[2023-12-12 10:29] LABS: ESTIMATED AVERAGE GLUCOSE 100 mg/dL (70-100); HEMOGLOBIN A1c% 5.1 % (4.27-6.07)
== END 2023-12-12 08:42 | disposition home or self-care (01) ==
LOC: LAB 08:41
PROVIDERS: ATTEND Nurse Practitioner
DX: R53.83 Other fatigue (principal); Z13.220 Encounter for screening for lipoid disorders; G62.9 Polyneuropathy, unspecified; E66.01 Morbid (severe) obesity due to excess calories
CPT/HCPCS: 36415; 80061; 83036; 83721; 84443

== ENCOUNTER 2024-01-30 09:46 | Outpatient (CLI) | payer MEDICARE ==
[2024-01-30 10:01] LABS: BASOPHILS % (AUTO) 0.3 %; EOSINOPHILS # (AUTO) 0.2 10^3/uL (0.0-0.7); EOSINOPHILS % (AUTO) 2.2 %; HCT - HEMATOCRIT 49.3 % (42.0-52.0); HGB - HEMOGLOBIN 15.5 g/dL (14.0-18.0); LYMPHOCYTES # (AUTO) 3.7 10^3/uL (1.5-3.5); LYMPHOCYTES % (AUTO) 35.4 %; MEAN CORPUSCULAR HEMOGLOBIN 27.9 pg (27.0-31.0); MEAN CORPUSCULAR HGB CONC 31.4 g/dL (32.0-36.0); MEAN CORPUSCULAR VOLUME 88.8 fL (80.0-94.0); MEAN PLATELET VOLUME 11.8 fL (7.4-11.4); MONOCYTES # (AUTO) 0.6 10^3/uL (0.0-1.0); NEUTROPHILS # (AUTO) 5.8 10^3/uL (1.5-6.6); NEUTROPHILS % (AUTO) 55.7 %; PLT - PLATELET COUNT 264 10^3/uL (130-450); RED BLOOD COUNT 5.55 10^6/uL (4.70-6.10); RED CELL DISTRIBUTION WIDTH 13.3 % (12.0-15.0); WHITE BLOOD COUNT 10.4 x10^3/uL (4.8-10.8)
[2024-01-30 10:17] LABS: ALBUMIN 4.3 g/dL (3.2-5.5); ALBUMIN/GLOBULIN RATIO 1.5 (1.0-2.2); BILIRUBIN,TOTAL 0.3 mg/dL (0.2-1.0); CALCIUM 9.5 mg/dL (8.5-10.3); CREATININE 0.7 mg/dL (0.6-1.3); POTASSIUM 4.5 mmol/L (3.5-4.5); TOTAL PROTEIN 7.1 g/dL (6.4-8.9)
== END 2024-01-30 09:47 | disposition home or self-care (01) ==
LOC: LAB 09:46
PROVIDERS: ATTEND Internal Medicine Infectious Disease
DX: M86.9 Osteomyelitis, unspecified (principal)
CPT/HCPCS: 36415; 80053; 85025